=== PATIENT | female | born 1985 | race American Indian/Alaskan Native ===

== ENCOUNTER 2016-10-04 15:43 | Emergency (ER) | payer OTHER, BC ==
[2016-10-04 15:53] VITALS: BP 107/66; PULSE 72; RESP 16; TEMP 99.2; O2SAT 100
[2016-10-04] MEDS ORDERED: Naproxen 500 MG TAB PO ONE ×2 (16:15→16:26)
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
--- NOTE | 2016-10-04 17:28 | RAD ---
PROCEDURE: Radiographs of the Right Shoulder HISTORY: trauma COMPARISON: No prior. FINDINGS: BONES: Bone alignment and mineralization are normal. There is no acute displaced fracture JOINTS: Normal. Glenohumeral and acromioclavicular joints preserved. SOFT TISSUES: Normal. OTHER FINDINGS: None. IMPRESSION: No acute fracture or dislocation.
== END 2016-10-04 17:35 | disposition home or self-care (01) ==
LOC: H.ER 15:43
DX: S49.91XA Unspecified injury of right shoulder and upper arm, initial encounter (principal); V43.62XA Car passenger injured in collision with other type car in traffic accident, initial encounter; Y92.410 Unspecified street and highway as the place of occurrence of the external cause

== ENCOUNTER 2017-01-08 08:55 | Emergency (ER) | payer BC ==
[2017-01-08 09:03] VITALS: BP 115/60; PULSE 83; TEMP 97; O2SAT 98
[2017-01-08 09:04] VITALS: BMI 22.1
--- NOTE | 2017-01-08 09:31 | ED PDOC ---
Upper Extremity Pain/Injury Time Seen by Provider: 01/08/17 09:12 Chief Complaint (Nursing): Upper Extremity Problem/Injury History Per: Patient History/Exam Limitations: no limitations Onset/Duration Of Symptoms: Days (5), Gradual Current Symptoms Are (Timing): Still Present (5) Quality: Dull, Aching Severity: Moderate Exacerbating Factor(s): Movement Additional History Per: Patient Additional Complaint(s): rt. shoulder pain x5 days after lifting heavy items at work. been prescribed muscle relaxant w/o relief. woke up this am, shoulder was stiffed and sore with moving her arm. no hand n/t/w Past Medical History Reviewed: Historical Data, Nursing Documentation, Vital Signs Vital Signs: Last Vital Signs Temp 97 F L 01/08/17 09:02 Pulse 83 01/08/17 09:02 Resp BP 115/60 01/08/17 09:02 Pulse Ox 98 01/08/17 09:02 - Medical History PMH: No Chronic Diseases Denies: Chronic Kidney Disease - Family History Family History: States: Unknown Family Hx - Living Arrangements Living Arrangements: With Family - Social History Current smoker - smoking cessation education provided: No - Home Medications Home Medications: Ambulatory Orders Medication Instructions Recorded Ranitidine HCl [Zantac] 150 mg PO BID #20 tablet 04/12/16 Naproxen [Naprosyn] 500 mg PO BID PRN #14 tab 10/04/16 Naproxen 500 mg PO BID PRN #30 tab 01/08/17 - Allergies Allergies/Adverse Reactions: Allergies Allergy/AdvReac Type Severity Reaction Status Date / Time No Known Allergies Allergy Verified 04/12/16 10:14 Review of Systems ROS Statement: Except As Marked, All Systems Reviewed And Found Negative Constitutional: Negative for: Fever, Chills Cardiovascular: Negative for: Chest Pain Respiratory: Negative for: Cough, Shortness of Breath Gastrointestinal: Negative for: Nausea, Vomiting, Abdominal Pain Musculoskeletal: Positive for: Arm Pain (left hsoulder pain worse with movement) Neurological: Negative for: Weakness, Numbness Physical Exam - Reviewed Nursing Documentation Reviewed: Yes Vital Signs Reviewed: Yes - Physical Exam Appears: Positive for: Well, No Acute Distress Head Exam: Positive for: ATRAUMATIC, NORMAL INSPECTION, NORMOCEPHALIC Eye Exam: Positive for: Normal appearance Neck: Positive for: Normal, Painless ROM, Supple Cardiovascular/Chest: Positive for: Regular Rate, Rhythm, Chest Non Tender. Negative for: Edema, Gallop, Murmur, Bradycardia, Tachycardia Respiratory: Positive for: Normal Breath Sounds. Negative for: Decreased Breath Sounds, Accessory Muscle Use, Crackles, Rales, Rhonchi, Stridor, Wheezing , Respiratory Distress Pulses-Radial (L): 2+ Pulses-Radial (R): 2+ Extremity: Positive for: Normal ROM (full rom but limited by pain especially rotation and abduction), Tenderness (at rotater cuff insertion). Negative for: Calf Tenderness, Deformity, Swelling - ECG O2 Sat by Pulse Oximetry: 98 Pulse Ox Interpretation: Normal - Other Rad No standard instances X-Ray: Interpreted by Me X-Ray Interpretation: right hsoulder with mild ac joint separation, no fx or dislocation no sts - Progress ED Course And Treament: advise cling and close f/u with ortho. pt agree's with plan and leaves in good spirits. Re-evaluation Time: 10:00 Condition: Improved Disposition - Clinical Impression Clinical Impression: Acromioclavicular joint separation, type 1 - Patient ED Disposition Is Patient to be Admitted: No Counseled Patient/Family Regarding: Studies Performed, Diagnosis, Need For Followup - Disposition Referrals: Becki Rodarte MD [Primary Care Provider] - Beth Nolasco MD [Staff Provider] - Disposition: Routine/Home Disposition Time: 10:21 Condition: GOOD Prescriptions: Naproxen 500 mg PO BID PRN #30 tab PRN Reason: Pain, Moderate (4-7) Instructions: Rotator Cuff Injury (ED) Forms: [employer] ([place]), [facility] ED School/Work Excuse
[2017-01-08] MEDS ORDERED: Naproxen 500 MG TAB PO STA (10:00)
[2017-01-08] MEDS ORDERED: Naproxen 500 MG TAB PO ONE (10:38)
--- NOTE | 2017-01-08 11:56 | RAD ---
PROCEDURE: Radiographs of the Right Shoulder HISTORY: pain COMPARISON: No prior. FINDINGS: BONES: Normal. No fracture. JOINTS: Mild widening of the right acromioclavicular joint. Unremarkable glenohumeral relationship. SOFT TISSUES: Normal. OTHER FINDINGS: None. IMPRESSION: Widening of the right acromioclavicular joint consistent with recent trauma. Concordant results with the preliminary interpretation rendered by the emergency department physician procedure.
== END 2017-01-08 10:43 | disposition home or self-care (01) ==
LOC: H.ER 08:55 → SUPCPDRO 08:55 → H.ER 10:43
DX: S43.102A Unspecified dislocation of left acromioclavicular joint, initial encounter (principal); X50.9XXA Other and unspecified overexertion or strenuous movements or postures, initial encounter; Y99.0 Civilian activity done for income or pay

== ENCOUNTER 2017-03-12 10:19 | Emergency (ER) | payer BC ==
[2017-03-12 10:20] VITALS: BMI 22.1
[2017-03-12 11:10] VITALS: TEMP 98; O2SAT 100
--- NOTE | 2017-03-12 13:04 | ED PDOC ---
HPI: Abdomen Time Seen by Provider: 03/12/17 13:03 Chief Complaint (Nursing): Abdominal Pain Chief Complaint (Provider): abd pain History Per: Patient Additional Complaint(s): 31-year-old female presents to emergency department with 1 week history of diarrhea, vomiting and abdominal pain. Patient states that she cannot keep any liquids or solids down. She denies any fever or chills. Patient tried Pepto- Bismol which did not help her symptoms. PMD: Dr. Becki Rodarte Past Medical History Reviewed: Historical Data, Nursing Documentation, Vital Signs Vital Signs: Last Vital Signs Temp 98 F 03/12/17 11:08 Pulse 79 03/12/17 11:08 Resp 17 03/12/17 11:08 BP 123/81 03/12/17 11:08 Pulse Ox 100 03/12/17 15:30 - Medical History PMH: No Chronic Diseases - Surgical History Surgical History: No Surg Hx - Family History Family History: States: No Known Family Hx - Living Arrangements Living Arrangements: With Family - Social History Current smoker - smoking cessation education provided: No Alcohol: None Drugs: Denies - Home Medications Home Medications: Ambulatory Orders Medication Instructions Recorded Ranitidine HCl [Zantac] 150 mg PO BID #20 tablet 04/12/16 Naproxen [Naprosyn] 500 mg PO BID PRN #14 tab 10/04/16 Naproxen 500 mg PO BID PRN #30 tab 01/08/17 Dicyclomine [Bentyl] 10 mg PO QID PRN #20 cap 03/12/17 Ondansetron [Zofran Odt] 4 mg PO ASDIR PRN #20 odt 03/12/17 - Allergies Allergies/Adverse Reactions: Allergies Allergy/AdvReac Type Severity Reaction Status Date / Time No Known Allergies Allergy Verified 03/12/17 11:07 Review of Systems ROS Statement: Except As Marked, All Systems Reviewed And Found Negative Constitutional: Negative for: Fever, Chills Cardiovascular: Negative for: Chest Pain Respiratory: Negative for: Cough Gastrointestinal: Positive for: Nausea, Vomiting, Abdominal Pain, Diarrhea. Negative for: Constipation Genitourinary Female: Negative for: Dysuria, Vaginal Discharge, Vaginal Bleeding Physical Exam - Reviewed Nursing Documentation Reviewed: Yes Vital Signs Reviewed: Yes - Physical Exam Appears: Positive for: Well, Non-toxic, No Acute Distress Skin: Negative for: Rash Eye Exam: Positive for: Normal appearance Cardiovascular/Chest: Positive for: Regular Rate, Rhythm Respiratory: Positive for: Normal Breath Sounds. Negative for: Wheezing, Respiratory Distress Gastrointestinal/Abdominal: Positive for: Soft, Tenderness (epigastric). Negative for: Distended, Guarding, Rebound Back: Negative for: L CVA Tenderness, R CVA Tenderness Extremity: Positive for: Normal ROM Neurologic/Psych: Positive for: Alert, Oriented - Laboratory Results Result Diagrams: 03/12/17 14:18 03/12/17 14:18 Urine POC: Negative Urine dip results: Positive for: Ketones. Negative for: Leukocyte Esterase, Blood, Nitrate, Glucose, Bilirubin, Protein - ECG O2 Sat by Pulse Oximetry: 100 Pulse Ox Interpretation: Normal - Other Rad Abd US X-Ray: Read By Radiologist X-Ray Interpretation: no acute finding Medical Decision Making Medical Decision Makin-year-old female with abdominal pain, nausea and vomiting. Plan: CBC CMP Lipase Urine dip and IVF IV zofran IV toradol IV pepcid Patient is aware of all diagnostic testing results. All questions answered. Patient was able to tolerate water, sandwich and juice with no further emesis. She states she feels much better. Patient was instructed to follow up with PMD in 1-2 days. GI referral also provided. Disposition - Clinical Impression Clinical Impression: Gastroenteritis - Patient ED Disposition Is Patient to be Admitted: No Counseled Patient/Family Regarding: Studies Performed, Diagnosis, Need For Followup, Rx Given - Disposition Referrals: Fito Camp MD [Staff Provider] - Becki Rodarte MD [Medical Doctor] - Disposition: Routine/Home Disposition Time: 16:16 Condition: STABLE Additional Instructions: Take prescription meds as directed as needed for nausea and stomach upset. Drink plenty of fluids and follow bland diet. Follow-up with primary doctor or manufacturing test engineer for further evaluation. Prescriptions: Dicyclomine [Bentyl] 10 mg PO QID PRN #20 cap PRN Reason: Gi Distress Ondansetron [Zofran Odt] 4 mg PO ASDIR PRN #20 odt PRN Reason: Nausea/Vomiting Instructions: Gastroenteritis (ED) Forms: [employer] (Italian), [facility] ED School/Work Excuse Results - Lab Results Lab Results: 03/12/17 03/12/17 14:18 14:18 WBC 4.6 L RBC 5.08 Hgb 14.1 Hct 42.7 MCV 84.2 MCH 27.8 MCHC 33.1 RDW 12.5 Plt Count 162 MPV 11.2 Neut % (Auto) 45.8 L Lymph % (Auto) 43.7 H [place] % (Auto) 9.4 Eos % (Auto) 0.7 Baso % (Auto) 0.4 Neut # 2.1 Lymph # 2.0 [place] # 0.4 Eos # 0.0 Baso # 0.0 Sodium 140 Potassium 3.7 Chloride 102 Carbon Dioxide 26 Anion Gap 16 BUN 10 Creatinine 0.8 Est GFR ( Amer) > 60 Est GFR (Non-Af Amer) > 60 Random Glucose 80 Calcium 9.9 Total Bilirubin 0.5 AST 36 ALT 23 Alkaline Phosphatase 83 Total Protein 8.6 H Albumin 4.6 Globulin 4.0 H Albumin/Globulin Ratio 1.2 Lipase 170
[2017-03-12] MEDS ORDERED: Sodium Chloride 0.9% 1,000 ML IV STA (13:22)
[2017-03-12 14:31] LABS: BASO % 0.4 % (0.0-2.0); EOS % 0.7 % (0.0-4.0); HEMOGLOBIN 14.1 g/dL (12.0-16.0); LYMPH % 43.7 % (20.0-40.0); MEAN CELL VOLUME 84.2 fl (81.0-99.0); MEAN CORPUSCULAR HEMOGLOBIN 27.8 pg (27.0-31.0); MEAN CORPUSCULAR HGB CONC 33.1 g/dL (33.0-37.0); MEAN PLATELET VOLUME 11.2 fl (7.2-11.7); MONO # 0.4 K/uL (0.0-0.8); MONO % 9.4 % (0.0-10.0); NEUT # 2.1 K/uL (1.8-7.0); NEUT % 45.8 % (50.0-75.0); NRBC % 0.2 % (0.0-0.0); RBC 5.08 Mil/uL (3.80-5.20); RED CELL DISTRIBUTION WIDTH 12.5 % (11.5-14.5); WHITE BLOOD COUNT 4.6 K/uL (4.8-10.8)
--- NOTE | 2017-03-12 14:45 | US ---
HISTORY: Abdominal pain and vomiting. COMPARISON: 04/12/2016 TECHNIQUE: Sonographic evaluation of the abdomen. FINDINGS: LIVER: Measures 14.5 cm. Patent portal vein. Portal venous flow: Hepatopetal. Unremarkeable echogenicity of the liver parenchyma. No mass. No intrahepatic bile duct dilatation. GALLBLADDER: Unremarkable. No gallstones. COMMON BILE DUCT: Measures 3.2 mm. No stones. No dilatation. PANCREAS: Unremarkable as visualized. No mass. No ductal dilatation. RIGHT KIDNEY: Measures 4.3 x 9.9cm. Normal echogenicity. No calculus, mass, or hydronephrosis. LEFT KIDNEY: Measures 5.9 x 10.2cm. Normal echogenicity. No calculus, mass, or hydronephrosis. SPLEEN: Normal in size and contour. No mass. AORTA: No aneurysmal dilatation. IVC: Unremarkable. OTHER FINDINGS: None. IMPRESSION: Unremarkable abdominal sonogram.No significant interval change compared to the prior examination(s).
[2017-03-12 14:50] LABS: ALBUMIN 4.6 g/dL (3.5-5.0); ALT/SGPT 23 U/L (9-52); AST/SGOT 36 U/L (14-36); BLOOD UREA NITROGEN 10 mg/dl (7-17); CALCIUM 9.9 mg/dL (8.4-10.2); GFR AFRICAN-AMERICAN > 60; GFR NON-AFRICAN AMERICAN > 60; LIPASE 170 U/L (23-300)
[2017-03-12 14:54] LABS: ALB/GLOB RATIO 1.2 (1.0-2.1)
[2017-03-12 16:28] VITALS: BP 122/68; PULSE 66; RESP 16
== END 2017-03-12 16:34 | disposition home or self-care (01) ==
LOC: H.ER 10:19
DX: K52.9 Noninfective gastroenteritis and colitis, unspecified (principal)
CPT/HCPCS: 76700; 80053; 81025; 83690; 85025; 96361; 96374; 96375; 99283; J1885; J2405; J7040